=== PATIENT | male | born 1950 | race Caucasian/White ===

== ENCOUNTER → 2019-11-16 10:22 | Outpatient (BNVA) | payer BC, SELFPAY | PROVIDERS: Family Provider Physician Assistant Medical; PCP Physician Assistant Medical; Visit Provider Nurse Practitioner Family | DX: R50.9 Fever, unspecified (principal); Z20.828 Contact with and (suspected) exposure to other viral communicable diseases | CPT/HCPCS: 87804 ==

== ENCOUNTER → 2020-01-26 09:41 | Outpatient (BNVA) | payer BC, SELFPAY | PROVIDERS: Family Provider Physician Assistant Medical; PCP Physician Assistant Medical; Visit Provider Nurse Practitioner Family | DX: L98.9 Disorder of the skin and subcutaneous tissue, unspecified (principal) | CPT/HCPCS: 88304 ==

== ENCOUNTER → 2020-06-23 10:09 | Outpatient (BNVA) | payer BC, SELFPAY | PROVIDERS: Family Provider Physician Assistant Medical; PCP Physician Assistant Medical; Visit Provider Nurse Practitioner Family | DX: U07.1 COVID-19 (principal) | CPT/HCPCS: 87400; 87635 ==

== ENCOUNTER → 2021-05-11 12:21 | Outpatient (BNVA) | payer BC, SELFPAY | PROVIDERS: Family Provider Physician Assistant Medical; PCP Physician Assistant Medical; Visit Provider Nurse Practitioner Family | DX: J18.9 Pneumonia, unspecified organism (principal) | CPT/HCPCS: 87635 ==

== ENCOUNTER → 2021-05-23 09:39 | Outpatient (BNVA) | payer BC, SELFPAY | PROVIDERS: Family Provider Physician Assistant Medical; PCP Physician Assistant Medical; Visit Provider Family Medicine | DX: J68.0 Bronchitis and pneumonitis due to chemicals, gases, fumes and vapors (principal); R06.02 Shortness of breath; R05 Cough | CPT/HCPCS: 71046; 80053; 83880; 85025; 85651; 86140 ==

== ENCOUNTER 2022-05-08 06:00 | Outpatient (RCR) | payer OTHER, SELFPAY | END 2022-06-06 23:59 | disposition home or self-care (01) | LOC: WPT 06:00 | PROVIDERS: PCP Physician Assistant Medical; Visit Provider Orthopaedic Surgery | DX: S83.92XD Sprain of unspecified site of left knee, subsequent encounter (principal); X58.XXXD Exposure to other specified factors, subsequent encounter; M17.12 Unilateral primary osteoarthritis, left knee | CPT/HCPCS: 97110; 97112; 97116; 97161 ==

== ENCOUNTER 2023-09-10 06:00 | Outpatient (RCR) | payer BC, SELFPAY | END 2023-10-06 23:59 | disposition home or self-care (01) | LOC: WPT 06:00 | PROVIDERS: Visit Provider Orthopaedic Surgery | DX: Z47.1 Aftercare following joint replacement surgery (principal); Z96.652 Presence of left artificial knee joint | CPT/HCPCS: 97110; 97112; 97116; 97161; 97530 ==

== ENCOUNTER 2023-10-07 06:00 | Outpatient (RCR) | payer BC, SELFPAY | END 2023-11-06 23:59 | disposition home or self-care (01) | LOC: WPT 06:00 | PROVIDERS: Visit Provider Orthopaedic Surgery | DX: Z47.1 Aftercare following joint replacement surgery (principal); Z96.652 Presence of left artificial knee joint | CPT/HCPCS: 97110; 97112; 97116; 97530 ==

== ENCOUNTER 2023-11-07 06:00 | Outpatient (RCR) | payer BC, SELFPAY | END 2023-12-05 23:59 | disposition home or self-care (01) | LOC: WPT 06:00 | PROVIDERS: PCP Nurse Practitioner Family; Visit Provider Orthopaedic Surgery | DX: Z47.1 Aftercare following joint replacement surgery (principal); Z96.652 Presence of left artificial knee joint | CPT/HCPCS: 97110; 97112; 97140; 97530 ==

== ENCOUNTER → 2024-11-26 13:21 | Outpatient (BNVA) | payer MEDICARE, SELFPAY | PROVIDERS: PCP Nurse Practitioner Family; Visit Provider Dermatology | DX: L30.0 Nummular dermatitis (principal); D22.39 Melanocytic nevi of other parts of face; L72.0 Epidermal cyst; L82.1 Other seborrheic keratosis; Q82.5 Congenital non-neoplastic nevus; L73.0 Acne keloid; L57.0 Actinic keratosis | CPT/HCPCS: 17000; 99214 ==

== ENCOUNTER 2025-01-05 05:00 | Outpatient (RCR) | payer MEDICARE, SELFPAY | END 2025-02-03 23:59 | disposition home or self-care (01) | LOC: WPT 05:00 | PROVIDERS: Visit Provider Orthopaedic Surgery | DX: Z98.890 Other specified postprocedural states (principal) | CPT/HCPCS: 97110; 97112; 97161; 97530 ==

== ENCOUNTER 2025-02-04 06:00 | Outpatient (RCR) | payer MEDICARE, SELFPAY | END 2025-03-06 23:59 | disposition home or self-care (01) | LOC: WPT 06:00 | PROVIDERS: Visit Provider Orthopaedic Surgery | DX: Z98.890 Other specified postprocedural states (principal) | CPT/HCPCS: 97110; 97112; 97140; 97530 ==

== ENCOUNTER → 2025-02-25 09:26 | Outpatient (BNVA) | payer MEDICARE, SELFPAY | PROVIDERS: PCP Nurse Practitioner Family; Visit Provider Nurse Practitioner Family | DX: Z13.6 Encounter for screening for cardiovascular disorders (principal); Z12.5 Encounter for screening for malignant neoplasm of prostate; I10 Essential (primary) hypertension; J22 Unspecified acute lower respiratory infection; J98.11 Atelectasis; I70.0 Atherosclerosis of aorta; Z79.899 Other long term (current) drug therapy | CPT/HCPCS: 71046; 80053; 80061; 81003; 82306; 83036; 84443; 85025; 85651; 86140; G0103 ==

== ENCOUNTER 2025-03-07 05:00 | Outpatient (RCR) | payer MEDICARE, SELFPAY | END 2025-04-05 23:59 | disposition home or self-care (01) | LOC: WPT 05:00 | PROVIDERS: PCP Nurse Practitioner Family; Visit Provider Orthopaedic Surgery | DX: Z98.890 Other specified postprocedural states (principal) | CPT/HCPCS: 97110; 97112; 97140; 97530 ==

== ENCOUNTER 2025-04-06 05:00 | Outpatient (RCR) | payer MEDICARE, SELFPAY | END 2025-05-06 23:59 | disposition home or self-care (01) | LOC: WPT 05:00 | PROVIDERS: PCP Nurse Practitioner Family; Visit Provider Orthopaedic Surgery | DX: Z98.890 Other specified postprocedural states (principal) | CPT/HCPCS: 97110; 97112; 97140; 97530 ==